=== PATIENT | female | born 1985 | race Caucasian/White ===

== ENCOUNTER → 2017-03-19 | Outpatient (CLI) | payer OTHER ==
[2015-07-04 13:06] VITALS: BP 136/77
--- NOTE | 2017-03-19 15:20 | RAD ---
Indication: Right wrist pain. Time of exam 1512 hours. The distal radius and ulna are intact. The carpus is intact. Metacarpals are unremarkable. No fractures are seen. Impression: No acute bony abnormality is detected.
== END | disposition home or self-care (01) ==
LOC: DXRADRC 15:05
PROVIDERS: ATTEND Physician Assistant Medical
DX: M25.531 Pain in right wrist (principal)
CPT/HCPCS: 73110